=== PATIENT | female | born 1970 | race Caucasian/White ===

== ENCOUNTER 2021-01-09 08:49 | Day surgery (SDC) | payer BC ==
[2021-01-09] MEDS ORDERED: MIDAZOLAM 2 MG/2 ML VIAL ONE ×3 (10:14→10:30)
[2021-01-09] MEDS ORDERED: fentaNYL 250 MCG/5 ML VIAL ONE (10:14)
[2021-01-09] MEDS ORDERED: ONDANSETRON 4 MG/2 ML VIAL ONE (10:14)
[2021-01-09] MEDS ORDERED: LACTATED RINGERS 600 ML IV ONE (10:42)
[2021-01-09 11:13] VITALS: BP 114/67
== END 2021-01-09 08:50 | disposition home or self-care (01) ==
LOC: SDS 08:49
PROVIDERS: ATTEND Surgery
DX: Z12.11 Encounter for screening for malignant neoplasm of colon (principal); Z85.3 Personal history of malignant neoplasm of breast; Z87.891 Personal history of nicotine dependence
CPT/HCPCS: 45378; J3010; J7120

== ENCOUNTER 2021-05-29 12:29 | Outpatient (CLI) | payer BC ==
--- NOTE | 2021-05-30 08:52 | Mammography Report ---
UNILATERAL RIGHT DIGITAL DIAGNOSTIC MAMMOGRAM 3D/2D: 05/29/2021 CLINICAL: Patient returns for a 6 month follow up of the right breast. Personal history of left breas t cancer. Comparison is made to exams dated: 05/08/2020 ultrasound, 05/08/2020 mammogram, 04/23/2020 mammogram, 01/07 mammogram, 12/08/2017 mammogram, and 12/08/2017 breast MRI - [facility]. There are scattered fibroglandular elements in right breast. There is an oval equal density asymmetry with an indistinct margin in the right breast middle depth s uperior region seen on the mediolateral oblique view only. This is not significantly changed. There also are grouped dystrophic rim calcifications in the right breast at 3 o'clock posterior depth . No other significant masses or calcifications are seen in the breast. IMPRESSION: PROBABLY BENIGN The oval equal density asymmetry in the right breast middle depth superior region seen on the mediola teral oblique view only is probably benign. The grouped dystrophic rim calcifications in the right breast at 3 o'clock posterior depth are consis tent with fat necrosis and are benign. A follow-up mammogram in 12 months is recommended to demonstrate 2 year stability. This exam was interpreted at Station ID: [id number]. NOTE: For mammograms, a report in lay terms will be sent to the patient. Approximately 15% of breast malignancies will not be visualized mammographically. In the management of a palpable breast mass, a negative mammogram must not discourage biopsy of a clinically suspicious lesion. Electronically Signed By: Darnell Sweeney M.D. ddp/:05/29/2021 13:21:51 ACR BI-RADS Category 3: Probably benign 3343F PARENCHYMAL PATTERN: (A) - The breast(s) demonstrate(s) scattered fibroglandular densities. BI-RADS CATEGORY: (3) - 3 Mammogram [id number] 12 month follow-up LATERALITY: (B)
== END 2021-05-29 12:30 | disposition home or self-care (01) ==
LOC: DI 12:29
PROVIDERS: ATTEND Internal Medicine Hematology & Oncology
DX: R92.8 Other abnormal and inconclusive findings on diagnostic imaging of breast (principal); Z85.3 Personal history of malignant neoplasm of breast

== ENCOUNTER 2022-05-19 08:00 | Outpatient (CLI) | payer BC ==
[2022-05-19 16:02] LABS: BASOPHILS # (AUTO) 0.1 10^3/uL (0.0-0.1); EOSINOPHILS # (AUTO) 0.2 10^3/uL (0.0-0.7); EOSINOPHILS % (AUTO) 2.5 %; HCT - HEMATOCRIT 38.1 % (37.0-47.0); HGB - HEMOGLOBIN 12.6 g/dL (12.0-16.0); LYMPHOCYTES # (AUTO) 2.1 10^3/uL (1.5-3.5); LYMPHOCYTES % (AUTO) 29.4 %; MEAN CORPUSCULAR HEMOGLOBIN 31.4 pg (27.0-31.0); MEAN CORPUSCULAR HGB CONC 33.1 g/dL (32.0-36.0); MEAN PLATELET VOLUME 10.8 fL (7.9-10.8); MONOCYTES # (AUTO) 0.5 10^3/uL (0.0-1.0); MONOCYTES % (AUTO) 7.1 %; NEUTROPHILS # (AUTO) 4.2 10^3/uL (1.5-6.6); NEUTROPHILS % (AUTO) 59.7 %; PLT - PLATELET COUNT 285 10^3/uL (130-450); RED BLOOD COUNT 4.01 10^6/uL (4.20-5.40); RED CELL DISTRIBUTION WIDTH 12.3 % (12.0-15.0); WHITE BLOOD COUNT 7.1 x10^3/uL (4.8-10.8)
[2022-05-19 16:18] LABS: ALBUMIN/GLOBULIN RATIO 1.3 (1.0-2.2); ALKALINE PHOSPHATASE 92 IU/L (42-121); ALT ALANINE AMINOTRANSFERASE 18 IU/L (10-60); AST ASPARTATE AMINOTRANSFERASE 19 IU/L (10-42); BILIRUBIN,TOTAL 0.7 mg/dL (0.2-1.0); BUN - BLOOD UREA NITROGEN 20 mg/dL (6-20); CALCIUM 9.3 mg/dL (8.5-10.3); CARBON DIOXIDE - CO2 25 mmol/L (21-32); CHLORIDE 104 mmol/L (101-111); CHOL/HDL RATIO 4.5 (<4.4); CHOLESTEROL 229 mg/dL; CREATININE 0.6 mg/dL (0.4-1.0); GFR - MDRD 105 (>89); GLUCOSE 102 mg/dL (70-100); HDL CHOLESTEROL 51 mg/dL; LDL CHOLESTEROL,CALCULATED 155 mg/dL; POTASSIUM 4.1 mmol/L (3.5-5.0); SODIUM 138 mmol/L (135-145); TOTAL PROTEIN 7.1 g/dL (6.7-8.2); TRIGLYCERIDES 114 mg/dL; VLDL CHOLESTEROL 23 mg/dL
== END 2022-05-19 23:59 | disposition home or self-care (01) ==
LOC: LAB.R 08:00
PROVIDERS: ATTEND Internal Medicine
DX: Z00.00 Encounter for general adult medical examination without abnormal findings (principal); K76.0 Fatty (change of) liver, not elsewhere classified; C50.919 Malignant neoplasm of unspecified site of unspecified female breast; Z86.19 Personal history of other infectious and parasitic diseases; G43.909 Migraine, unspecified, not intractable, without status migrainosus
CPT/HCPCS: 36415; 80053; 80061; 82306; 83721; 84443; 85025

== ENCOUNTER 2023-03-30 08:55 | Outpatient (CLI) | payer BC ==
--- NOTE | 2023-03-31 12:09 | Mammography Report ---
UNILATERAL RIGHT DIGITAL DIAGNOSTIC MAMMOGRAM 3D/2D: 03/30/2023 CLINICAL: Palpable right breast lump. Personal history of left breast cancer. Comparison is made to exams dated: 06/09/2022 mammogram - [facility], 05/29/2021 mammogram - [facility], 05/29/2021 mammogram - [facility], 05/08/2020 mammogr am, 04/23/2020 mammogram, and 02/04/2019 mammogram - [facility]. The right breast is heterogeneously dense, which may obscure small masses (category c / 51-75% glandu lar tissue). No significant masses, calcifications, or other findings are seen in the breast. Possible lymph node corresponds to palpable marker in axillary tail. IMPRESSION: INCOMPLETE: NEEDS ADDITIONAL IMAGING EVALUATION Possible lymph node corresponds to palpable marker in axillary tail. Ultrasound recommended. Future imaging is recommended as follows: 06/10/2023 screening mammogram. This exam was interpreted at Station ID: [id number]. NOTE: For mammograms, a report in lay terms will be sent to the patient. Approximately 15% of breast malignancies will not be visualized mammographically. In the management of a palpable breast mass, a negative mammogram must not discourage biopsy of a clinically suspicious lesion. Electronically Signed By: Grady Benson M.D. lc/:03/30/2023 11:33:53 ACR BI-RADS Category 0: Incomplete 3340F PARENCHYMAL PATTERN: (D) - The breast(s) demonstrate(s) heterogeneously dense fibroglandular parenchy ma. BI-RADS CATEGORY: (0) - 0 Ultrasound [id number] Immediate follow-up LATERALITY: (B)
--- NOTE | 2023-03-31 12:09 | Ultrasound Report ---
LIMITED ULTRASOUND OF RIGHT BREAST AND AXILLA: 03/30/2023 CLINICAL: Palpable right breast lump. Comparison is made to exams dated: 03/30/2023 mammogram - [facility], 06/09/2022 [place] [facility] [place], 05/29/2021 mammogram - [facility], 12/25/2021 ultras ound - [facility] [place], 05/29/2021 mammogram - [facility], and 05/08/2020 ultra sound - [facility]. Color flow and real-time ultrasound of the right breast 10 o'clock, and axilla regions were performed . Vo scale images of the real-time examination were reviewed. There is an axillary node in the right breast that correlates with mammography and clinical concern. This is technically enlarged by size criteria, measuring 3.4 x 1.9 x 4.7cm. However, there is a vera r fatty hilum. Large lymph nodes with normal morphology also seen on more remote mammogram and MR alcides ging. IMPRESSION: BENIGN There is no sonographic evidence of malignancy. There is an axillary node in the right breast that correlates with mammography and clinical concern. This is technically enlarged by size criteria, measuring 3.4 x 1.9 x 4.7cm. However, there is a vera r fatty hilum. Large lymph nodes with normal morphology also seen on more remote mammogram and MR alcides ging. This is benign. Clinical followup however is recommended. If there a history of enlargement or other new/worsening cl inical symptoms, recommend reimaging and possible biopsy. Return to annual mammogram screening schedule is recommended. This exam was interpreted at Station ID: [id number]. Electronically Signed By: Grady Benson M.D. lc/:03/30/2023 11:38:32 Ultrasound BI-RADS: 2 Benign BI-RADS CATEGORY: (2) - 2 RECOMMENDATION: (ANNUAL) - Recommend routine annual screening mammography. [id number] return to screening LATERALITY: (B)
== END 2023-03-30 08:56 | disposition home or self-care (01) ==
LOC: DI 08:55
PROVIDERS: ATTEND Internal Medicine Hematology & Oncology
DX: R59.0 Localized enlarged lymph nodes (principal); Z85.3 Personal history of malignant neoplasm of breast

== ENCOUNTER 2023-05-04 09:40 | Outpatient (CLI) | payer BC ==
--- NOTE | 2023-05-04 11:41 | Ultrasound Report ---
PROCEDURE: Needle Bx Lymph Node INDICATIONS: HIST OF BREAST CA TECHNIQUE: The indications, alternatives, benefits, risks, and complications of the procedure were e xplained to the patient. Written informed consent was obtained and placed in the chart. Real-time sonography was utilized to choose the site for percutaneous lymph node sampling. The skin was prepped and draped in the usual sterile fashion. 1% lidocaine was infiltrated down to the site o f interest. A 19-gauge introducer needle was placed at the peripheral aspect of the lymph node and 4 biopsy samples were taken. The needles were then withdrawn; a bandage was applied to the procedure si te. COMPARISON: Right breast ultrasound 03/30/2023 FINDINGS: Sample site(s): Right axilla lymph node Needle: 18-gauge Bard Number of passes: 4 Medications: 1% lidocaine for local anaesthesia. Complications: None. IMPRESSION: Successful ultrasound-guided right axillary lymph node biopsy, with cytology results pending. Reviewed by: Nishant Ansari MD on 05/04/2023 11:40 AM PDT Approved by: Nishant nAsari MD on 05/04/2023 11:40 AM PDT Station ID: [id number]
[2023-05-04] MEDS ORDERED: LIDOCAINE-MPF 1% 5 ML VIAL TD ONE (13:09)
== END 2023-05-04 09:41 | disposition home or self-care (01) ==
LOC: DI 09:40
PROVIDERS: ATTEND Internal Medicine Hematology & Oncology
DX: Z85.3 Personal history of malignant neoplasm of breast (principal)
CPT/HCPCS: 38505